=== PATIENT | female | born 1930 | race Caucasian/White ===

== ENCOUNTER 2019-11-04 14:37 | Emergency (ER) | payer OTHER, MEDICAID ==
[~2019-11-04] VITALS: Ht 149.9 cm; Wt 63.7 kg
[2019-11-04 15:01] VITALS: BP 140/67
--- NOTE | 2019-11-04 15:01 | NUR ---
Patient ambulated to bed 8 with family. RN evaluating patient at bedside.
--- NOTE | 2019-11-04 15:24 | NUR ---
X-RAY AT BEDSIDE COMPLETED
[2019-11-04] MEDS ORDERED: MORPHINE SULFATE 4 MG/ML SYR IM ONE (15:45)
[2019-11-04] MEDS ORDERED: CYCLOBENZAPRINE 10 MG TAB PO ONE (15:45)
--- NOTE | 2019-11-04 16:08 | NUR ---
PT TAKEN TO CT
--- NOTE | 2019-11-04 16:10 | NUR ---
pt to ct via [facility]
[2019-11-04] MEDS ORDERED: ONDANSETRON 4 MG/2 ML VIAL IVP ONE (16:30)
[2019-11-04] MEDS ORDERED: MORPHINE SULFATE 2 MG/ML SYR IVP ONE (16:30)
[2019-11-04] MEDS ORDERED: NACL 0.9% 1,000 ML IV ONE (16:30)
[2019-11-04] MEDS ORDERED: LORazepam 2 MG/ML VIAL IVP ONE (16:35)
[2019-11-04 17:09] LABS: BASOPHILS % (AUTO) 0.2 % (0.0-2.0); EOSINOPHILS # (AUTO) 0.1 K/uL (0-0.4); EOSINOPHILS % (AUTO) 0.7 % (0.0-4.0); HEMATOCRIT 41.8 % (36-48); LYMPHOCYTES # (AUTO) 3.2 K/uL (2.5-16.5); LYMPHOCYTES % (AUTO) 31.6 % (20.5-51.1); MEAN CORPUSCULAR HEMOGLOBIN 31 pg (27-31); MEAN CORPUSCULAR HGB CONC 33 g/dL (33-37); MEAN CORPUSCULAR VOLUME 92.5 fL (80-94); MONOCYTES # (AUTO) 0.6 K/uL (0.8-1.0); MONOCYTES % (AUTO) 6.3 % (1.7-9.3); NEUTROPHILS # (AUTO) 6.1 K/uL (1.8-7.7); NEUTROPHILS % (AUTO) 61.2 % (42.2-75.2); PLATELET COUNT (AUTO) 264 K/uL (140-450); RED BLOOD CELL COUNT(AUTO) 4.52 MIL/uL (4.20-5.40); RED CELL DISTRIBUTION WIDTH 13.4 % (11.6-13.7)
[2019-11-04 18:11] LABS: ALBUMIN 3.7 g/dL (3.4-5.0); ANION GAP 14.5 (8-16); ASPARTATE AMINOTRANSFERASE 31 U/L (15-37); CARBON DIOXIDE 26.4 mmol/L (21-32); CHLORIDE 103 mmol/L (98-107); CREATININE 1.1 mg/dL (0.6-1.3); GLUCOSE 110 mg/dL (74-106); LIPASE 326 U/L (73-393); POTASSIUM 3.9 mmol/L (3.5-5.1); SODIUM SERUM 140 mmol/L (136-145); TOTAL BILIRUBIN 0.6 mg/dL (0.0-1.0); UREA NITROGEN, BLOOD 32 mg/dL (7-18)
[2019-11-04 18:59] VITALS: BP 137/87
--- NOTE | 2019-11-04 19:01 | NUR ---
Patient discharged with v/s stable. Written and verbal after care instructions given and explained. Patient verbalized understanding. Ambulatory with steady gait. All questions addressed prior to discharge. Advised to follow up with PMD.
== END 2019-11-04 19:01 | disposition home or self-care (01) ==
LOC: MED 14:37
DX: S40.012A Contusion of left shoulder, initial encounter (principal); S09.90XA Unspecified injury of head, initial encounter; K57.30 Diverticulosis of large intestine without perforation or abscess without bleeding; I10 Essential (primary) hypertension; F03.90 Unspecified dementia, unspecified severity, without behavioral disturbance, psychotic disturbance, mood disturbance, and anxiety; Z86.73 Personal history of transient ischemic attack (TIA), and cerebral infarction without residual deficits; Z88.0 Allergy status to penicillin; W18.39XA Other fall on same level, initial encounter; Y92.89 Other specified places as the place of occurrence of the external cause; Y93.89 Activity, other specified; Y99.8 Other external cause status
CPT/HCPCS: 36415; 70450; 71045; 73030; 74176; 80053; 83605; 83690; 84484; 85025; 87040; 93005; 96372; 96374; 96375; 99284; J2060; J2270; J2405; Q0092

== ENCOUNTER 2020-01-25 15:51 | Emergency (ER) | payer OTHER ==
[~2020-01-25] VITALS: Ht 146.1 cm; Wt 64.9 kg
[2020-01-25 16:02] VITALS: BP 170/67
--- NOTE | 2020-01-25 16:08 | NUR ---
PT AMB TO BED 6.
--- NOTE | 2020-01-25 16:37 | NUR ---
Patient taken to CT scan via gurney by [employer].
[2020-01-25 16:53] VITALS: BP 170/67
--- NOTE | 2020-01-25 17:11 | NUR ---
Dr. Powers is evaluating patient at bedside.
--- NOTE | 2020-01-25 18:18 | NUR ---
PATIENT PRESENTS TO ED WITH DAUGHTER IN LAW . PT STATES S/P SLIP AND FALL HITTING HER RIGHT TEMPORAL AREA . DENIES N/V/D; SKIN IS PINK/WARM/DRY; AAOX4 WITH EVEN AND STEADY GAIT; LUNGS CLEAR BL; HR EVEN AND REGULAR; PT DENIES ANY FEVER, CP, SOB, OR COUGH AT THIS TIME; PATIENT STATES PAIN OF 0/10 AT THIS TIME; VSS; PATIENT POSITIONED FOR COMFORT; HOB ELEVATED; BEDRAILS UP X2; BED DOWN. ER MD MADE AWARE OF PT STATUS.
== END 2020-01-25 18:18 | disposition home or self-care (01) ==
LOC: MED 15:51
DX: S05.11XA Contusion of eyeball and orbital tissues, right eye, initial encounter (principal); H54.61 Unqualified visual loss, right eye, normal vision left eye; I10 Essential (primary) hypertension; F03.90 Unspecified dementia, unspecified severity, without behavioral disturbance, psychotic disturbance, mood disturbance, and anxiety; Z88.0 Allergy status to penicillin; Z86.73 Personal history of transient ischemic attack (TIA), and cerebral infarction without residual deficits; W19.XXXA Unspecified fall, initial encounter; Y93.89 Activity, other specified; Y92.89 Other specified places as the place of occurrence of the external cause; Y99.8 Other external cause status
CPT/HCPCS: 70450; 70486; 99285